=== PATIENT | male | born 1995 | race African-American/Black ===

== ENCOUNTER 2018-12-05 16:11 | Emergency (ER) | payer MEDICAID ==
[~2018-12-05] VITALS: Ht 172.7 cm; Wt 72.1 kg
[2018-12-05 17:44] LABS: Urine Bacteria NONE SEEN /hpf (None Seen); Urine Blood TRACE /uL (Negative); Urine Mucus FEW (None Seen); Urine Specific Gravity 1.036 (1.001-1.035); Urine WBC 5 /hpf (0 - 3)
[2018-12-05 18:46] VITALS: BP 146/84
== END 2018-12-05 19:42 | disposition home or self-care (01) ==
LOC: ER 16:11
DX: N45.1 Epididymitis (principal); F17.210 Nicotine dependence, cigarettes, uncomplicated; F12.10 Cannabis abuse, uncomplicated
CPT/HCPCS: 76870; 81001